=== PATIENT | male | born 1955 | race Caucasian/White ===

== ENCOUNTER 2022-02-03 09:44 | Outpatient (CLI) | payer MEDICARE, SELFPAY ==
[2022-02-03 10:47] LABS: SARS-CoV-2 RNA PCR Negative (Negative)
[2022-02-03 11:15] LABS: SARS-CoV-2 Ag Negative (Negative)
== END 2022-02-03 09:45 | disposition home or self-care (01) ==
PROVIDERS: PCP Internal Medicine; Visit Provider Internal Medicine
DX: Z01.818 Encounter for other preprocedural examination (principal); Z20.822 Contact with and (suspected) exposure to COVID-19
CPT/HCPCS: 87426; C9803; U0003; U0005